=== PATIENT | female | born 1965 | race Caucasian/White ===

== ENCOUNTER 2020-12-12 18:32 | Emergency (ER) | payer MEDICAID ==
[~2020-12-12] VITALS: Ht 152.4 cm; Wt 75.7 kg
--- NOTE | 2020-12-12 18:53 | NUR ---
[email or web address], medical screening exam in progress, pending MD's orders.
[2020-12-12] MEDS ORDERED: METF-442 PO (18:59)
[2020-12-12] MEDS ORDERED: GLIM4TAB37 PO (18:59)
[2020-12-12] MEDS ORDERED: IV NORMAL SALINE 100 ML BAG IV ONE (19:00)
[2020-12-12] MEDS ORDERED: ONDANSETRON 4 MG/2 ML VIAL IV ONE (19:00)
--- NOTE | 2020-12-12 19:07 | NUR ---
Blood was drawn. Patient is still for EKG, IV fluid bolus and anti-emetics. SBAR to 7pm [facility] subramanian.
[2020-12-12 19:15] LABS: HEMATOCRIT 40.5 % (31.2-41.9); MEAN CORPUSCULAR HEMOGLOBIN 29.2 uug (24.7-32.8); MEAN CORPUSCULAR VOLUME 86.5 fL (75.5-95.3); PLATELET COUNT (AUTO) 175 K/uL (179-408)
--- NOTE | 2020-12-12 19:15 | NUR ---
Recieved report from [facility]. Pt had just arrived, IV incerted and meds yet to be given. EKG performed with normal results. 1L NS hung and flowing and 4mg Zofran given at 1940.
[2020-12-12 19:28] LABS: BILIRUBIN,TOTAL 0.4 mg/dL (0.2-1.0); POTASSIUM 3.6 mmol/L (3.5-5.1); TOTAL PROTEIN, SERUM 7.7 g/dL (6.4-8.2)
[2020-12-12] MEDS ORDERED: ONDANSETRON 4 MG/2 ML VIAL ONE (19:55)
[2020-12-12] MEDS ORDERED: HYDROCODONE/APAP 5-325MG TABLET PO ONE (22:15)
--- NOTE | 2020-12-12 22:30 | NUR ---
pt complaining of moderate pain in back, neck and lt flank region. EDMD notified and MD ordered a pain pill.
[2020-12-12] MEDS ORDERED: HYDROCODONE/APAP 5-325MG TABLET ONE (22:33)
--- NOTE | 2020-12-12 22:40 | NUR ---
5mg [place] pain pill given without any s/sx of reaction present.
--- NOTE | 2020-12-12 23:10 | NUR ---
Pt given DC instructions and pt confirmed understanding of aftercare. Pt states that she will follow up with PMD within the week. Pt has good color, temp and appearance. VSS, PE wnl. 104/69, 84bpm, 98% RA. Pt states that she feels much better. Pt denies any nausea but still 4/10 pain in lt flank area. No s/sx of distress present.
[2020-12-12 23:16] VITALS: BP 136/88
[2020-12-13] MEDS ORDERED: buPROPion XL 150 MG TAB.SR.24H PO SCH (03:00)
== END 2020-12-12 23:10 | disposition home or self-care (01) ==
LOC: ER 18:33
DX: M79.7 Fibromyalgia (principal); F12.929 Cannabis use, unspecified with intoxication, unspecified; M06.9 Rheumatoid arthritis, unspecified; E11.40 Type 2 diabetes mellitus with diabetic neuropathy, unspecified; Z90.49 Acquired absence of other specified parts of digestive tract; Z87.442 Personal history of urinary calculi; Z79.84 Long term (current) use of oral hypoglycemic drugs
CPT/HCPCS: 36415; 80053; 84484; 85025; 93005; 96374; 99284; J2405; 70030-TC; A4663

== ENCOUNTER 2021-02-23 09:14 | Emergency (ER) | payer MEDICAID ==
[~2021-02-23] VITALS: Ht 149.9 cm; Wt 75.3 kg
[~2021-02-23 09:14] MED LIST: GLIM4TAB37 PO; METF-442 PO
[2021-02-23] MEDS ORDERED: IV NORMAL SALINE 100 ML BAG IV ONE (10:00)
[2021-02-23 10:21] LABS: HEMATOCRIT 39.6 % (31.2-41.9); MEAN CORPUSCULAR HEMOGLOBIN 29.2 uug (24.7-32.8); MEAN CORPUSCULAR VOLUME 86.6 fL (75.5-95.3); PLATELET COUNT (AUTO) 189 K/uL (179-408)
[2021-02-23] MEDS ORDERED: IV NORMAL SALINE 250 ML IV ONE (10:21)
[2021-02-23] MEDS ORDERED: SWABABLE VALVE TRANSFER SET EA MC ONE (10:21)
[2021-02-23] MEDS ORDERED: IOHEXOL 300MG/ML 100 ML INFUS..BTL ONE (10:21)
[2021-02-23 10:32] LABS: BILIRUBIN,TOTAL 0.4 mg/dL (0.2-1.0); CREATININE 0.9 mg/dL (0.6-1.3); POTASSIUM 4.3 mmol/L (3.5-5.1); TOTAL PROTEIN, SERUM 7.5 g/dL (6.4-8.2)
[2021-02-23] MEDS: KETOROLAC TROMETHAMINE 15 MG INJ IVP ONE ×2 (10:47→11:28)
[2021-02-23] MEDS ORDERED: KETOROLAC TROMETHAMINE 15 MG INJ ONE (10:52)
[2021-02-23 12:32] LABS: *BILIRUBIN,URIN NEGATIVE (NEGATIVE); *BLOOD, URINE NEGATIVE (NEGATIVE); *CLARITY,URINE CLEAR (CLEAR); *COLOR,URINE Brown (YELLOW); *KETONES,URINE NEGATIVE (NEGATIVE); *UROBILINOGEN,URINE 0.2 E.U./dl (NORMAL); LEUKOCYTE ESTERASE ,URINE NEGATIVE (NEGATIVE); NITRITE, URINE NEGATIVE (NEGATIVE); UGLUCOSE NEGATIVE (NEGATIVE)
--- NOTE | 2021-02-23 13:03 | NUR ---
Patient discharged to home in stable condition. Written and verbal after care instructions given. Patient verbalizes understanding of instructions. Stressed follow up or return to ER for worsening s/s.PT SAYS FEELS BETTER.
[2021-02-23 13:10] VITALS: BP 131/81
== END 2021-02-23 13:03 | disposition home or self-care (01) ==
LOC: ER 09:14
DX: M79.7 Fibromyalgia (principal); R10.84 Generalized abdominal pain; M06.9 Rheumatoid arthritis, unspecified; Z90.49 Acquired absence of other specified parts of digestive tract; Z87.442 Personal history of urinary calculi; E11.40 Type 2 diabetes mellitus with diabetic neuropathy, unspecified; Z79.84 Long term (current) use of oral hypoglycemic drugs
CPT/HCPCS: 36415; 74177; 80053; 81003; 83690; 84484; 85025; 93005; 96361; 96374; 99285; J1885; Q9967; 70030-TC; A4663; J7030; J7050

== ENCOUNTER 2021-05-28 04:31 | Emergency (ER) | payer MEDICAID ==
[~2021-05-28] VITALS: Ht 149.9 cm; Wt 73.9 kg
--- NOTE | 2021-05-28 04:38 | NUR ---
PT BIB SON C/O LOW BACK PAIN RADIATING TO LT LEG X2 DAYS. PT SEEN AT [facility] FOR SAME COMPLAINT.
--- NOTE | 2021-05-28 04:44 | NUR ---
DR. DUMONT AT BEDSIDE, MSE IN PROGRESS.
[2021-05-28] MEDS ORDERED: PROCHLORPERAZINE MALEATE 5 MG TABLET ONE (04:58)
[2021-05-28] MEDS ORDERED: HYDROMORPHONE 2 MG/1 ML DISP.SYRIN ONE (04:59)
[2021-05-28] MEDS ORDERED: HYDROMORPHONE 1 MG/1 ML DISP.SYRIN ONE (04:59)
[2021-05-28] MEDS ORDERED: HYDROMORPHONE 1 MG/1 ML DISP.SYRIN IM ONE (05:00)
[2021-05-28] MEDS ORDERED: PROCHLORPERAZINE MALEATE 5 MG TABLET PO ONE (05:00)
[2021-05-28 05:29] LABS: HEMATOCRIT 40.2 % (31.2-41.9); MEAN CORPUSCULAR HEMOGLOBIN 28.5 uug (24.7-32.8); MEAN CORPUSCULAR VOLUME 85.5 fL (75.5-95.3); PLATELET COUNT (AUTO) 174 K/uL (179-408)
[2021-05-28 05:44] LABS: POTASSIUM 5.3 mmol/L (3.5-5.1)
[2021-05-28] MEDS ORDERED: HYDR4TAB4 PO (06:16)
[2021-05-28] MEDS ORDERED: PROC-11 PO (06:16)
--- NOTE | 2021-05-28 07:08 | NUR ---
REPORT GIVEN TO CHARY PT NOTED TO BE IN BED, RESTING COMFORTBLY. WAITING ON HER SON TO PICK HER UP FOR DISCHARGE.
--- NOTE | 2021-05-28 07:22 | NUR ---
PT's son at the bedside for discharge, pt states being in sever pain. Notified Dr Lyle.
--- NOTE | 2021-05-28 07:33 | NUR ---
Dr Gold at the bedside revaulating the pt.
[2021-05-28] MEDS ORDERED: ONDANSETRON 4 MG/2 ML VIAL IV ONE (07:45)
[2021-05-28] MEDS ORDERED: IV NORMAL SALINE 1000 ML BAG IV ONE (07:45)
[2021-05-28] MEDS ORDERED: ONDANSETRON 4 MG/2 ML VIAL ONE (07:46)
[2021-05-28] MEDS ORDERED: KETOROLAC TROMETHAMINE 30 MG INJ ONE (07:47)
[2021-05-28] MEDS ORDERED: KETOROLAC TROMETHAMINE 30 MG INJ IVP ONE (08:15)
--- NOTE | 2021-05-28 09:30 | NUR ---
Pt sleeping w/ both eyes closed, NAD noted.
--- NOTE | 2021-05-28 10:22 | NUR ---
Sidney JERRY spoke to Dr Oneill from [facility].
--- NOTE | 2021-05-28 10:30 | NUR ---
Spoke to leisa from [facility], pt to be transfered to [facility], will notify me w/ arragments.
[2021-05-28 11:34] LABS: *BILIRUBIN,URIN NEGATIVE (NEGATIVE); *BLOOD, URINE NEGATIVE (NEGATIVE); *CLARITY,URINE CLEAR (CLEAR); *COLOR,URINE YELLOW (YELLOW); *KETONES,URINE 1+ (NEGATIVE); *UROBILINOGEN,URINE 0.2 E.U./dl (NORMAL); LEUKOCYTE ESTERASE ,URINE NEGATIVE (NEGATIVE); NITRITE, URINE NEGATIVE (NEGATIVE); PH,URINE 5.5 (5.0-8.0); UGLUCOSE NEGATIVE (NEGATIVE)
--- NOTE | 2021-05-28 12:00 | NUR ---
Pt refused to be placed in [facility], and stated wanting to go home.
--- NOTE | 2021-05-28 12:16 | NUR ---
IV removed. Catheter intact and site benign. Pressure and 4x4 gauze applied to site. No bleeding noted.
[2021-05-28 12:17] VITALS: BP 110/67
--- NOTE | 2021-05-28 12:17 | NUR ---
Patient discharged to home in stable condition. Written and verbal after care instructions given. Patient verbalizes understanding of instructions. Stressed follow up or return to ER for worsening s/s.
== END 2021-05-28 12:18 | disposition home or self-care (01) ==
LOC: ER 04:32
DX: M54.42 Lumbago with sciatica, left side (principal); M79.7 Fibromyalgia; E11.40 Type 2 diabetes mellitus with diabetic neuropathy, unspecified; G57.22 Lesion of femoral nerve, left lower limb; Z90.49 Acquired absence of other specified parts of digestive tract; Z87.442 Personal history of urinary calculi; Z79.84 Long term (current) use of oral hypoglycemic drugs; Z79.899 Other long term (current) drug therapy; Z20.822 Contact with and (suspected) exposure to COVID-19
CPT/HCPCS: 36415; 80048; 81003; 83036; 85025; 87426; 96361; 96372; 96374; 96375; 99284; J1170 ×2; J1885; J2405; J8499; A4663; J7040

== ENCOUNTER 2021-06-05 04:46 | Emergency (ER) | payer SELFPAY ==
[~2021-06-05 04:46] MED LIST changes: +HYDR4TAB4 PO; +PROC-11 PO
--- NOTE | 2021-06-05 05:30 | NUR ---
Pt not in waiting room.
--- NOTE | 2021-06-05 06:00 | NUR ---
Pt left without being seen.
== END 2021-06-05 06:01 | disposition left against medical advice (07) ==
LOC: ER 04:52
DX: Z53.21 Procedure and treatment not carried out due to patient leaving prior to being seen by health care provider (principal)